=== PATIENT | female | born 1955 | race Caucasian/White ===

== ENCOUNTER 2022-04-16 16:13 | Inpatient (IN) | payer OTHER ==
[2022-04-16 16:55] VITALS: BMI 18.0
[2022-04-16] MEDS ORDERED: IBUPROFEN 600 MG TABLET (FP) PO PRN (17:15)
[2022-04-16] MEDS ORDERED: DICYCLOMINE HCL 10 MG CAPSULE PO PRN (17:15)
[2022-04-16] MEDS ORDERED: MAGNESIUM HYDROX 2400MG/30ML ORAL SUSPENSION 30 ML CUP PO PRN (17:15)
[2022-04-16] MEDS ORDERED: IBUPROFEN 400 MG TABLET (FP) PO PRN (17:15)
[2022-04-16] MEDS ORDERED: guaiFENesin 200 MG/10 ML 10 ML UNIT-DOSE CUPS PO PRN (17:15)
[2022-04-16] MEDS ORDERED: BISMUTH SUBSALICYLATE 524 MG/30 ML PO PRN (17:15)
[2022-04-16] MEDS ORDERED: P-EPHED 60MG/TRIPROLIDI 2.5MG TABLET PO PRN (17:15)
[2022-04-16] MEDS ORDERED: LOPERAMIDE HCL 2 MG CAPSULE PO PRN (17:15)
[2022-04-16] MEDS ORDERED: ACETAMINOPHEN 325 MG TABLET (FP) PO PRN ×2 (17:15)
[2022-04-16] MEDS ORDERED: MAG HYDROX/AL HYDROX/SIMETH 30 ML UNIT-DOSE CUP PO PRN (17:15)
[2022-04-16] MEDS ORDERED: ONDANSETRON *ODT* 4 MG TABLET SL PRN (17:15)
[2022-04-16] MEDS ORDERED: BENZOCAINE/MENTHOL (CHLORASEPTIC ) LOZENGE MM PRN (17:15)
[2022-04-16] MEDS ORDERED: POLYETHYLENE GLYCOL (HEALTHYLAX) 3350 17 GM PACKET PO PRN (17:15)
[2022-04-16] MEDS ORDERED: METOPROLOL TARTRATE 50 MG TABLET (FP) PO ONE (17:17)
[2022-04-16] MEDS ORDERED: METOPROLOL TARTRATE 25 MG TABLET (FP) ONE (18:10)
[2022-04-16] MEDS ORDERED: ONDANSETRON *ODT* 4 MG TABLET ONE (18:10)
[2022-04-16] MEDS ORDERED: chlordiazePOXIDE HCL 25 MG CAPSULE ONE (18:10)
[2022-04-16] MEDS: chlordiazePOXIDE HCL 25 MG CAPSULE PO SCH ×2 (18:19→22:28)
[2022-04-16] MEDS ORDERED: cloNIDine HCL 0.1 MG TABLET PO ONE (22:04)
[2022-04-16] MEDS: THIAMINE HCL 100 MG TABLET (FP) PO SCH (22:29)
[2022-04-16] MEDS: MELATONIN 5 MG TABLETS PO PRN (22:29)
[2022-04-17] MEDS: chlordiazePOXIDE HCL 25 MG CAPSULE PO SCH ×4 (05:15→22:17)
[2022-04-17] MEDS: PRENATAL VITAMINS W/ FOLIC ACID TABLET (FP) PO SCH (10:21)
[2022-04-17] MEDS: chlordiazePOXIDE HCL 25 MG CAPSULE PO PRN ×2 (13:46→19:25)
[2022-04-17] MEDS: THIAMINE HCL 100 MG TABLET (FP) PO SCH (22:18)
[2022-04-17] MEDS: MELATONIN 5 MG TABLETS PO PRN (22:18)
[2022-04-18] MEDS: chlordiazePOXIDE HCL 25 MG CAPSULE PO PRN ×3 (06:05→20:37)
[2022-04-18] MEDS: chlordiazePOXIDE HCL 25 MG CAPSULE PO SCH ×4 (06:09→23:23)
[2022-04-18] MEDS: PRENATAL VITAMINS W/ FOLIC ACID TABLET (FP) PO SCH (10:15)
[2022-04-18 10:48] LABS: HEMATOCRIT 38.7 % (32.4-45.2); HEMOGLOBIN 12.7 GM/dL (10.7-15.3); MCH 31.2 pg (25.7-33.7); MCHC 32.9 g/dl (32.0-36.0); MEAN CELL VOLUME 94.9 fl (80-96); MEAN PLT VOLUME 8.7 fl (7.5-11.1); PLATELET COUNT 189 10^3/uL (134-434); RBC 4.08 M/mm3 (3.60-5.2); RDW 14.7 % (11.6-15.6); WHITE BLOOD COUNT 3.9 K/mm3 (4.0-10.0)
[2022-04-18 12:37] LABS: CALCIUM 8.9 mg/dL (8.5-10.1)
[2022-04-18 12:38] LABS: ALBUMIN 3.4 g/dl (3.4-5.0)
[2022-04-18 12:41] LABS: CREATININE 0.6 mg/dL (0.55-1.3)
[2022-04-18 12:43] LABS: BILIRUBIN,TOTAL 0.7 mg/dL (0.2-1)
[2022-04-18] MEDS: THIAMINE HCL 100 MG TABLET (FP) PO SCH (23:20)
[2022-04-19] MEDS ORDERED: chlordiazePOXIDE HCL 10 MG CAPSULE PO PRN
[2022-04-19] MEDS: chlordiazePOXIDE HCL 10 MG CAPSULE PO SCH ×4 (05:24→22:24)
[2022-04-19] MEDS: PRENATAL VITAMINS W/ FOLIC ACID TABLET (FP) PO SCH (10:31)
[2022-04-19] MEDS: cloNIDine HCL 0.1 MG TABLET PO PRN ×2 (13:53→17:31)
[2022-04-19] MEDS: CLINDAMYCIN HCL 150 MG CAPSULE (FP) PO SCH ×2 (15:09→22:24)
[2022-04-19] MEDS: MELATONIN 5 MG TABLETS PO PRN (22:24)
[2022-04-19] MEDS: THIAMINE HCL 100 MG TABLET (FP) PO SCH (22:24)
[2022-04-20] MEDS: chlordiazePOXIDE HCL 10 MG CAPSULE PO SCH ×2 (05:35→17:26)
[2022-04-20] MEDS: CLINDAMYCIN HCL 150 MG CAPSULE (FP) PO SCH ×3 (06:23→22:07)
[2022-04-20] MEDS: PRENATAL VITAMINS W/ FOLIC ACID TABLET (FP) PO SCH (10:03)
[2022-04-20] MEDS: cloNIDine HCL 0.1 MG TABLET PO PRN (14:43)
[2022-04-20] MEDS ORDERED: SUVOREXANT 10 MG TABLET PO PRN (20:00)
[2022-04-20] MEDS: THIAMINE HCL 100 MG TABLET (FP) PO SCH (22:07)
[2022-04-21] MEDS ORDERED: chlordiazePOXIDE HCL 10 MG CAPSULE PO ONE (05:00)
[2022-04-21] MEDS: CLINDAMYCIN HCL 150 MG CAPSULE (FP) PO SCH ×2 (06:00→14:26)
[2022-04-21 09:37] VITALS: RESP 18
[2022-04-21] MEDS: PRENATAL VITAMINS W/ FOLIC ACID TABLET (FP) PO SCH (10:18)
[2022-04-21 13:23] VITALS: BP 146/102; PULSE 92; TEMP 97.8
== END 2022-04-21 12:55 | disposition home or self-care (01) | DRG 897 ==
LOC: YASAS 16:13 → Y6N 18:31
PROVIDERS: ADMIT Allergy & Immunology; ATTEND Family Medicine
PROC: HZ2ZZZZ Detoxification Services for Substance Abuse Treatment (ICD-10-PCS; principal; 2022-04-16)
DX: F10.230 Alcohol dependence with withdrawal, uncomplicated (principal); F10.280 Alcohol dependence with alcohol-induced anxiety disorder; F10.282 Alcohol dependence with alcohol-induced sleep disorder; F10.24 Alcohol dependence with alcohol-induced mood disorder; I10 Essential (primary) hypertension; K04.7 Periapical abscess without sinus; Z91.410 Personal history of adult physical and sexual abuse; Z88.0 Allergy status to penicillin
CPT/HCPCS: 36415; 80053; 85027; 86780; 87811; C9803-CS; Q0162; U0003; U0005

== ENCOUNTER 2023-06-09 19:51 | Inpatient (IN) | payer BC, OTHER ==
[2023-06-09 20:56] VITALS: BMI 18.0
[2023-06-09] MEDS ORDERED: BENZOCAINE/MENTHOL (CHLORASEPTIC ) LOZENGE MM PRN (21:23)
[2023-06-09] MEDS ORDERED: guaiFENesin 600 MG TABLET.ER (FP) PO PRN (21:23)
[2023-06-09] MEDS ORDERED: LOPERAMIDE HCL 2 MG CAPSULE PO PRN (21:23)
[2023-06-09] MEDS ORDERED: POLYETHYLENE GLYCOL (HEALTHYLAX) 3350 17 GM PACKET PO PRN (21:23)
[2023-06-09] MEDS ORDERED: ONDANSETRON *ODT* 4 MG TABLET SL PRN (21:23)
[2023-06-09] MEDS ORDERED: MAGNESIUM HYDROX 2400MG/30ML ORAL SUSPENSION 30 ML CUP PO PRN (21:23)
[2023-06-09] MEDS ORDERED: IBUPROFEN 400 MG TABLET (FP) PO PRN (21:23)
[2023-06-09] MEDS ORDERED: MAG HYDROX/AL HYDROX/SIMETH 30 ML UNIT-DOSE CUP PO PRN (21:23)
[2023-06-09] MEDS ORDERED: IBUPROFEN 600 MG TABLET (FP) PO PRN (21:23)
[2023-06-09] MEDS ORDERED: BENZONATATE 200 MG CAPSULE PO PRN (21:23)
[2023-06-09] MEDS ORDERED: METOPROLOL TARTRATE 25 MG TABLET (FP) ONE (21:53)
[2023-06-09] MEDS: METOPROLOL TARTRATE 25 MG TABLET (FP) PO ONE (21:55)
[2023-06-09] MEDS: MELATONIN 5 MG TABLETS PO SCH (22:52)
[2023-06-09] MEDS: THIAMINE HCL 100 MG TABLET (FP) PO SCH (22:52)
[2023-06-09] MEDS: chlordiazePOXIDE HCL 25 MG CAPSULE PO SCH (22:52)
[2023-06-10] MEDS: PRENATAL VITAMINS W/ FOLIC ACID TABLET (FP) PO SCH (10:39)
[2023-06-10] MEDS: amLODIPine BESYLATE 5 MG TABLET (FP) PO SCH (10:39)
[2023-06-10 12:37] LABS: HEMATOCRIT 37.4 % (32.4-45.2); HEMOGLOBIN 12.4 GM/dL (10.7-15.3); MCH 32.4 pg (25.7-33.7); MCHC 33.2 g/dl (32.0-36.0); MEAN CELL VOLUME 97.6 fl (80-96); MEAN PLT VOLUME 8.9 fl (7.5-11.1); PLATELET COUNT 211 10^3/uL (134-434); RBC 3.83 M/mm3 (3.60-5.2); RDW 15.7 % (11.6-15.6); WHITE BLOOD COUNT 6.3 K/mm3 (4.0-10.0)
[2023-06-10 12:42] LABS: POTASSIUM 3.6 mmol/L (3.5-5.1)
[2023-06-10 12:44] LABS: ALBUMIN 3.3 g/dl (3.4-5.0); BLOOD UREA NITROGEN 16.2 mg/dL (7-18); CALCIUM 8.6 mg/dL (8.5-10.1)
[2023-06-10 12:47] LABS: CREATININE 0.8 mg/dL (0.55-1.3)
[2023-06-10 12:49] LABS: BILIRUBIN,TOTAL 1.1 mg/dL (0.2-1)
[2023-06-10] MEDS: chlordiazePOXIDE HCL 10 MG CAPSULE PO SCH (17:26)
[2023-06-10] MEDS: BISMUTH SUBSALICYLATE 524 MG/30 ML PO PRN (21:55)
[2023-06-10] MEDS: MIRTAZAPINE 15 MG TABLET (FP) PO SCH (21:56)
[2023-06-10] MEDS: MELATONIN 5 MG TABLETS PO PRN (21:56)
[2023-06-11] MEDS: chlordiazePOXIDE HCL 25 MG CAPSULE PO SCH (06:00)
[2023-06-11] MEDS: chlordiazePOXIDE HCL 25 MG CAPSULE PO PRN (14:38)
[2023-06-12] MEDS ORDERED: chlordiazePOXIDE HCL 10 MG CAPSULE PO PRN
[2023-06-12] MEDS: chlordiazePOXIDE HCL 10 MG CAPSULE PO SCH (06:00)
[2023-06-12] MEDS: LACTULOSE 20 GM/30 ML UDC (FOR ORAL USE ONLY) PO SCH (10:08)
[2023-06-12] MEDS: ACETAMINOPHEN 325 MG TABLET (FP) PO PRN (17:00)
[2023-06-13] MEDS: chlordiazePOXIDE HCL 10 MG CAPSULE PO SCH (05:56)
[2023-06-13 06:54] VITALS: RESP 16
[2023-06-13 11:12] VITALS: BP 136/116; PULSE 106; TEMP 97.8
[2023-06-14] MEDS ORDERED: chlordiazePOXIDE HCL 10 MG CAPSULE PO ONE (05:00)
== END 2023-06-13 09:56 | disposition home or self-care (01) | DRG 897 ==
LOC: YASAS 19:51 → Y6N 21:37
PROVIDERS: ADMIT Allergy & Immunology; ATTEND Neuromusculoskeletal Medicine & OMM
PROC: HZ2ZZZZ Detoxification Services for Substance Abuse Treatment (ICD-10-PCS; principal; 2023-06-09)
DX: F10.230 Alcohol dependence with withdrawal, uncomplicated (principal); F10.282 Alcohol dependence with alcohol-induced sleep disorder; F10.280 Alcohol dependence with alcohol-induced anxiety disorder; F10.24 Alcohol dependence with alcohol-induced mood disorder; F32.A Depression, unspecified; I10 Essential (primary) hypertension; R79.89 Other specified abnormal findings of blood chemistry; R26.89 Other abnormalities of gait and mobility; R63.6 Underweight; Z68.1 Body mass index [BMI] 19.9 or less, adult; Z99.89 Dependence on other enabling machines and devices; Z88.0 Allergy status to penicillin
CPT/HCPCS: 36415; 80053; 80305; 82140; 85027; 86780; 93005; 93010